=== PATIENT | female | born 1940 | race Caucasian/White ===

== ENCOUNTER 2020-10-20 05:44 | Day surgery (SDC) | payer MEDICARE, BC ==
[~2020-10-20] VITALS: Ht 176.5 cm; Wt 59.0 kg
[~2020-10-20 05:44] MED LIST: AMBIEN10 MG PO; AMBIEN5 MG PO; AVAPRO150 MG PO; BENADRYL25 MG; DIGOXIN250 MCG PO; HYDROCORTISONE30 G8 TOPICAL; LANOXIN125 MCG PO; NEXIUM40 MG PO; OMEPRAZOLE20 M1 PO; PROPRANOLOL HCL60 MG PO; ZYRTEC10 MG PO
[2020-10-20 06:33] VITALS: BP 122/66; Ht 176.5 cm; Wt 59.0 kg
[2020-10-20] MEDS ORDERED: HYDROCODON-ACE1 EAC7 PO (08:55)
--- NOTE | 2020-10-20 11:05 | NUR ---
1100 IV REMOVED AND INSTRUCTIONS GIVEN
--- NOTE | 2020-10-20 14:09 | OP ---
PATIENT NAME: ALPHONSE EBNDER MEDICAL RECORD: [id number] :42 LOCATION:D.OPS ADMISSION DATE: SURGEON: BLUE VICTOR MD DATE OF OPERATION: 10/20/2020 PREOPERATIVE DIAGNOSES: 1. Pancreatic cancer. 2. Pectus excavatum. 3. Hepatitis C. 4. Mitral regurgitation. POSTOPERATIVE DIAGNOSES: 1. Pancreatic cancer. 2. Pectus excavatum. 3. Hepatitis C. 4. Mitral regurgitation. PROCEDURE: Left subclavian vein PowerPort placement. SURGEON: Blue Victor MD DESCRIPTION OF PROCEDURE: The patient's left chest was prepped and draped in sterile fashion. A needle was used to cannulate the left subclavian vein. The guidewire was advanced with ease. Fluoroscopy was used to note that the wires were in good position in the venous system. A skin incision was made on the left superior lateral chest and a subcutaneous pouch was made over the pectoral fascia. The catheter was tunneled between this pouch and the wire exit site. The port was sutured to the pectoral fascia with interrupted 2-0 Prolenes times 2. The catheter was cut with a beveled tip at 20 cm. The dilator trocar device was placed over the wire and the wire and dilator were removed. The catheter tip was advanced through the trocar and the trocar was then removed. The catheter tip was noted to be resting in good position at the right atrial superior vena caval junction. The catheter aspirated nonpulsatile dark blood and flushed easily with heparinized saline. The subcutaneous tissues were reapproximated with interrupted 3-0 Vicryl and the skin incisions were closed with subcutaneous 5-0 Monocryl. COMPLICATIONS: None. CONDITION: Stable. ANESTHESIA: General endotracheal. BLOOD LOSS: Minimal. TRANSINT:[id number] Voice Confirmation ID: [id number] DOCUMENT ID: [id number] cc: [facility], [phone] OPERATIVE REPORT [id number] YULIABLUE BELTRAN MD at 1409 CC: [facility] and ROOPA JOHNSON [phone] DICTATION DATE: 10/20/20 0859 ADJUNCT PSYCHOLOGY INSTRUCTOR: 10/20/20 0957 [facility] 10/20/20 [facility] [address] [facility] [place] [address]
== END 2020-10-20 11:45 | disposition home or self-care (01) ==
LOC: D.OPS 05:44
PROVIDERS: ATTEND Surgery
DX: C25.9 Malignant neoplasm of pancreas, unspecified (principal); Q67.6 Pectus excavatum; B19.20 Unspecified viral hepatitis C without hepatic coma; I34.0 Nonrheumatic mitral (valve) insufficiency

== ENCOUNTER 2020-11-02 07:22 | Day surgery (SDC) | payer MEDICARE, BC ==
--- NOTE | 2020-11-01 14:25 | NUR ---
CONFIRMED APPT FOR 11/02 WITH PT DAUGHTER (POA) JANI THINNERS: NO NPO: NOTHING AFTER MIDNIGHT EXCEPT MEDICATIONS BOOTH MANAGER: YES ARRIVAL: 0730
[~2020-11-02] VITALS: Ht 176.5 cm; Wt 61.4 kg
[~2020-11-02 07:22] MED LIST changes: +HYDROCODON-ACE1 EAC7 PO
[2020-11-02 07:36] LABS: BASOPHILS 0.3 % (0-2); EOSINOPHILS 4.2 % (0-7); HEMATOCRIT 35.1 % (36.0-48.0); HEMOGLOBIN 11.7 g/dL (12-16); LYMPHOCYTE ABS# 1.41 10x3/uL (1.18-3.74); LYMPHOCYTES 45.5 % (15-50); MCH 31.4 pg (26.0-34.0); MCHC 33.3 g/dL (31.0-37.0); MCV 94.1 fL (80.0-100.0); MEAN PLATELET VOLUME 9.2 fL (7.4-10.4); MONOCYTES 3.2 % (2-11); NEUTROPHIL ABS# 1.45 10x3/uL (1.56-6.13); NEUTROPHILS 46.8 % (40-80); RBC 3.73 10x6/uL (4.00-5.40); RDW 13.7 % (11.5-14.5); WBC 3.1 10x3/uL (4.8-10.8)
[2020-11-02 07:37] LABS: PLATELET COUNT 132 10x3/uL (130-400)
[2020-11-02 07:54] LABS: ALBUMIN 3.3 g/dL (3.4-5.0); ALKALINE PHOSPHATASE 55 U/L (30-120); ALT (SGPT) 68 U/L (10-68); BILIRUBIN - TOTAL 0.51 mg/dL (0.2-1.3); CALC OSMOLALITY 269 mosm/kg (275-300); CALCIUM 9.3 mg/dL (8.5-10.1); CARBON DIOXIDE 29.6 mmol/L (21.0-32.0); CHLORIDE - SERUM 99 mmol/L (98-107); CREATININE - SERUM 0.6 mg/dL (0.6-1.3); GLUCOSE 103 mg/dL (74-106); POTASSIUM - SERUM 4.1 mmol/L (3.5-5.1); PROTEIN - SERUM 7.6 g/dL (6.4-8.2); SODIUM 134 mmol/L (136-145); UREA NITROGEN 17 mg/dL (7-18); eGFR NON AFRICAN AMERICAN > 90 mL/min (90-120)
[2020-11-02 07:59] LABS: APTT 28.6 SECONDS (22.8-39.4); INR 1.09 (0.85-1.17); PROTIME 13.1 SECONDS (11.6-15.0)
[2020-11-02 08:20] VITALS: Ht 176.5 cm; Wt 61.4 kg
[2020-11-02] MEDS ORDERED: PREDNISONE20 MG (08:37)
--- NOTE | 2020-11-02 16:45 | NUR ---
1110 ARRIVED TO ROOM AND ABDOMEN SOFT AND MILDLY DISTENDED. DRESSING CDI. TOLERATING SOME LIQUIDS. DAUGHTER AT BED 1200 FINGER FOOD TRAY ORDERED AND IR CALLED ABOUT DAUGHTERS CONCERN OF ABDOMEN. 1210 DR JENSEN AT BEDSIDE TO SEE PT. NO OREDERS GIVEN. 1450 IV REMOVED AND PRESSURE HELD.1510 PT GIVEN INSTRUCTIONS AND IV REMOVED AND PRESSURE HELD.
== END 2020-11-02 15:10 | disposition home or self-care (01) ==
LOC: D.SP 07:22
PROVIDERS: General Practice; ATTEND Internal Medicine Medical Oncology
DX: C25.3 Malignant neoplasm of pancreatic duct (principal)